=== PATIENT | male | born 1975 | race Two or more races ===

== ENCOUNTER 2020-09-04 10:11 | Inpatient (IN) | payer OTHER ==
[~2020-09-04] VITALS: Ht 182.9 cm; Wt 75.0 kg
[2020-09-04 10:54] LABS: BASOPHILS % (AUTO) 0.7 % (0.0-2.0); EOSINOPHILS % (AUTO) 1.1 % (1.0-6.0); HEMATOCRIT 32.3 % (41-53); HEMOGLOBIN 10.3 g/dL (13.5-17.5); LYMPHOCYTES # (AUTO) 0.5 K/uL (1.0-4.8); LYMPHOCYTES % (AUTO) 17.9 % (22.0-44.0); MEAN CORPUSCULAR HEMOGLOBIN 27.3 pg (26.0-34.0); MEAN CORPUSCULAR HGB CONC 31.9 G/dL (31.0-37.0); MEAN CORPUSCULAR VOLUME 86 fL (80-100); MONOCYTES # (AUTO) 0.3 K/uL (0.1-1.0); NEUTROPHILS # (AUTO) 1.7 K/uL (1.8-7.7); NEUTROPHILS % (AUTO) 69.3 % (40.0-70.0); PLATELET COUNT (AUTO) 152 K/uL (150-450); RED BLOOD CELL COUNT(AUTO) 3.77 MIL/uL (4.50-5.90); RED CELL DISTRIBUTION WIDTH 16.7 % (11.5-14.5)
[2020-09-04 11:01] LABS: COVID AG,FIA SOURCE NASAL SWAB
[2020-09-04] MEDS ORDERED: ALPR1TAB7 PO (11:03)
[2020-09-04] MEDS ORDERED: HYDR25TA84 PO (11:03)
[2020-09-04] MEDS ORDERED: CLON0.2T PO (11:03)
[2020-09-04] MEDS ORDERED: LABE100T8 PO (11:03)
[2020-09-04] MEDS ORDERED: AMLO-258 PO (11:03)
[2020-09-04] MEDS ORDERED: CYCL100L PO (11:03)
[2020-09-04 12:16] LABS: ANION GAP 13 mmol/L (8-16); CALCIUM, TOTAL 9.1 mg/dL (8.8-10.5); CARBON DIOXIDE 20 mmol/L (22-29); CHLORIDE 105 mmol/L (98-107); CREATININE 4.74 mg/dL (0.60-1.30); GLOMERULAR FILTR. RATE CALC 13 mL/min (>60); GLUCOSE,RANDOM 112 mg/dL (70-110); POTASSIUM 4.5 mmol/L (3.5-5.1); SODIUM SERUM 138 mmol/L (136-145); UREA NITROGEN, BLOOD 65 mg/dL (7-18)
[2020-09-04 12:21] LABS: ALANINE AMINOTRANSFERASE 22 U/L (12-78); ALBUMIN 3.8 g/dL (3.4-5.0); ALKALINE PHOSPHATASE 75 U/L (46-116); ASPARTATE AMINOTRANSFERASE 32 U/L (15-37); BILIRUBIN,TOTAL 0.6 mg/dL (0.1-1.0); TOTAL PROTEIN, SERUM 7.3 g/dL (6.4-8.2)
[2020-09-04] MEDS ORDERED: CYCL100 PO (13:09)
[2020-09-04] MEDS ORDERED: HYDR-4069 PO (13:09)
[2020-09-04] MEDS ORDERED: CYCL100C6 PO (13:10)
[2020-09-04] MEDS ORDERED: ACETAMINOPHEN 325 MG TABLET PO PRN ×2 (13:15→13:30)
[2020-09-04] MEDS ORDERED: 0.9% SODIUM CHLORIDE 10 ML SYRINGE IVP PRN ×2 (13:15→13:30)
[2020-09-04] MEDS ORDERED: IPRATROPIUM BROMIDE 0.5 MG/2.5 ML NEB SOLUTION NEB PRN (13:30)
[2020-09-04] MEDS ORDERED: DOCUSATE SODIUM 100 MG CAPSULE PO PRN (13:30)
[2020-09-04] MEDS: PANTOPRAZOLE SODIUM 40 MG DR TABLET PO SCH (13:30)
[2020-09-04] MEDS ORDERED: ONDANSETRON HCL 4 MG/2 ML VIAL IVP PRN (13:30)
[2020-09-04] MEDS ORDERED: ALBUTEROL SULFATE 2.5 MG/0.5 ML NEB SOLUTION NEB PRN (13:30)
[2020-09-04] MEDS ORDERED: BISACODYL 10 MG RECTAL RECTAL SUPPOSITORY PR PRN (13:30)
[2020-09-04] MEDS: VITAMIN B COMP/VIT C/FOLIC ACID CAPSULE PO SCH (14:13)
[2020-09-04 15:00] LABS: % IRON SATURATION 30.7 % (30-44)
[2020-09-04 15:48] VITALS: BP 143/97
[2020-09-04] MEDS: CloNIDine HCL 0.2 MG TABLET PO SCH ×2 (15:48→20:20)
[2020-09-04] MEDS: HydrALAZINE HCL 25 MG TABLET PO SCH ×2 (15:48→20:20)
[2020-09-04] MEDS ORDERED: ALPRAZolam 0.25 MG TABLET PO ONE (16:00)
[2020-09-04 19:55] VITALS: BP 145/88
[2020-09-04 21:38] LABS: APPEARANCE,URINE CLEAR (CLEAR); BILIRUBIN,URINE NEGATIVE (NEGATIVE); GLUCOSE, URINE (UA) 250 mg/dL (NEGATIVE); KETONES,URINE NEGATIVE (NEGATIVE); LEUKOCYTE ESTERASE ,URINE NEGATIVE (NEGATIVE); NITRATE,URINE NEGATIVE (NEGATIVE); OCCULT BLOOD,URINE NEGATIVE (NEGATIVE); PROTEIN,URINE POS 1+ (NEGATIVE); UROBILINOGEN,URINE 0.2 mg/dL (<=1.0)
[2020-09-04 21:42] LABS: AMPHET/METH SCREEN,URINE POSITIVE (NEGATIVE); BARBITURATE SCREEN, URINE NEGATIVE (NEGATIVE); BENZODIAZEPINES SCREEN,URINE NEGATIVE (NEGATIVE); CANNABINOID SCREEN,URINE POSITIVE (NEGATIVE); COCAINE SCREEN,URINE NEGATIVE (NEGATIVE); METHADONE SCREEN, URINE NEGATIVE (NEGATIVE); OPIATE SCREEN,URINE POSITIVE (NEGATIVE)
[2020-09-04 21:44] LABS: PHENCYCLIDINE SCREEN,URINE NEGATIVE (NEGATIVE)
[2020-09-04 21:53] LABS: CREATININE,URINE RANDOM 62.1 mg/dL (30.0-125.0)
[2020-09-04 21:57] LABS: BACTERIA,URINE None Seen /HPF (None Seen); SQUAMOUS EPITHELIAL CELL,UR Rare /LPF (None Seen); WBC,URINE None Seen /HPF (0-5)
[2020-09-04 21:58] LABS: RBC,URINE None Seen /HPF (0-2)
[2020-09-04 23:38] VITALS: BP 166/96
[2020-09-04] MEDS: HydrALAZINE HCL 25 MG TABLET PO PRN (23:52)
[2020-09-04] MEDS: HYDROCODONE/ACETAMINOPHEN 5-325 MG TABLET PO PRN (23:53)
[2020-09-05 04:55] VITALS: BP 166/94
[2020-09-05 05:39] LABS: BASOPHILS % (AUTO) 0.9 % (0.0-2.0); EOSINOPHILS % (AUTO) 3.3 % (1.0-6.0); HEMATOCRIT 33.7 % (41-53); HEMOGLOBIN 10.7 g/dL (13.5-17.5); LYMPHOCYTES # (AUTO) 0.6 K/uL (1.0-4.8); LYMPHOCYTES % (AUTO) 22.2 % (22.0-44.0); MEAN CORPUSCULAR HEMOGLOBIN 27.4 pg (26.0-34.0); MEAN CORPUSCULAR HGB CONC 31.9 G/dL (31.0-37.0); MEAN CORPUSCULAR VOLUME 86 fL (80-100); MONOCYTES # (AUTO) 0.5 K/uL (0.1-1.0); MONOCYTES % (AUTO) 16.8 % (2.0-9.0); NEUTROPHILS # (AUTO) 1.6 K/uL (1.8-7.7); NEUTROPHILS % (AUTO) 56.8 % (40.0-70.0); PLATELET COUNT (AUTO) 155 K/uL (150-450); RED BLOOD CELL COUNT(AUTO) 3.92 MIL/uL (4.50-5.90); RED CELL DISTRIBUTION WIDTH 16.8 % (11.5-14.5)
[2020-09-05 05:52] LABS: ALBUMIN 3.4 g/dL (3.4-5.0); BILIRUBIN,TOTAL 0.5 mg/dL (0.1-1.0); CALCIUM, TOTAL 8.8 mg/dL (8.8-10.5); CREATININE 4.32 mg/dL (0.60-1.30); MAGNESIUM 1.6 mg/dL (1.80-2.40); PHOSPHORUS 3.7 mg/dL (2.5-4.9); POTASSIUM 4.5 mmol/L (3.5-5.1); TOTAL PROTEIN, SERUM 6.7 g/dL (6.4-8.2)
[2020-09-05] MEDS: HydrALAZINE HCL 25 MG TABLET PO PRN (06:20)
[2020-09-05 07:47] VITALS: BP 144/88
[2020-09-05] MEDS: FERROUS SULFATE 325 MG EC TABLET PO SCH ×3 (07:58→18:16)
[2020-09-05] MEDS: VITAMIN B COMP/VIT C/FOLIC ACID CAPSULE PO SCH (08:00)
[2020-09-05] MEDS: DOCUSATE SODIUM 100 MG CAPSULE PO SCH ×2 (08:00→20:47)
[2020-09-05] MEDS: AmLODIPine BESYLATE 10 MG TABLET PO SCH (08:00)
[2020-09-05] MEDS: PANTOPRAZOLE SODIUM 40 MG DR TABLET PO SCH (08:00)
[2020-09-05] MEDS: CloNIDine HCL 0.2 MG TABLET PO SCH ×3 (08:00→20:47)
[2020-09-05] MEDS: HydrALAZINE HCL 25 MG TABLET PO SCH ×3 (08:01→20:47)
[2020-09-05] MEDS: CycloSPORINE,MODIFIED 100 MG CAPSULE PO SCH ×2 (12:13→20:48)
[2020-09-05] MEDS ORDERED: MAGNESIUM SULFATE 2 GM/WATER 50 ML IV ONE (14:15)
[2020-09-05] MEDS: ALPRAZolam 0.25 MG TABLET PO PRN (15:08)
[2020-09-05 15:44] VITALS: BP 140/86
[2020-09-05] MEDS: HYDROCODONE/ACETAMINOPHEN 5-325 MG TABLET PO PRN (20:47)
[2020-09-05 21:05] VITALS: BP 137/75
[2020-09-06] MEDS: ALPRAZolam 0.25 MG TABLET PO PRN ×3 (00:04→16:23)
[2020-09-06 05:05] VITALS: BP 151/83
[2020-09-06 06:15] LABS: EOSINOPHILS % (AUTO) 3.8 % (1.0-6.0); HEMATOCRIT 35.3 % (41-53); HEMOGLOBIN 11.3 g/dL (13.5-17.5); LYMPHOCYTES # (AUTO) 0.6 K/uL (1.0-4.8); LYMPHOCYTES % (AUTO) 25.1 % (22.0-44.0); MEAN CORPUSCULAR HEMOGLOBIN 27.3 pg (26.0-34.0); MEAN CORPUSCULAR HGB CONC 31.9 G/dL (31.0-37.0); MEAN CORPUSCULAR VOLUME 86 fL (80-100); MONOCYTES # (AUTO) 0.3 K/uL (0.1-1.0); MONOCYTES % (AUTO) 14.9 % (2.0-9.0); NEUTROPHILS # (AUTO) 1.3 K/uL (1.8-7.7); NEUTROPHILS % (AUTO) 55.2 % (40.0-70.0); PLATELET COUNT (AUTO) 166 K/uL (150-450); RED BLOOD CELL COUNT(AUTO) 4.12 MIL/uL (4.50-5.90); RED CELL DISTRIBUTION WIDTH 16.5 % (11.5-14.5)
[2020-09-06 06:27] LABS: ALBUMIN 3.2 g/dL (3.4-5.0); BILIRUBIN,TOTAL 0.4 mg/dL (0.1-1.0); CALCIUM, TOTAL 8.8 mg/dL (8.8-10.5); CALCIUM, TOTAL 9.2 mg/dL (8.8-10.5); CREATININE 4.06 mg/dL (0.60-1.30); CREATININE 4.24 mg/dL (0.60-1.30); MAGNESIUM 1.9 mg/dL (1.80-2.40); PHOSPHORUS 3.6 mg/dL (2.5-4.9); POTASSIUM 4.7 mmol/L (3.5-5.1); TOTAL PROTEIN, SERUM 6.6 g/dL (6.4-8.2)
[2020-09-06 07:37] VITALS: BP 141/80
[2020-09-06] MEDS: CloNIDine HCL 0.2 MG TABLET PO SCH ×3 (08:49→20:09)
[2020-09-06] MEDS: HydrALAZINE HCL 25 MG TABLET PO SCH ×3 (08:49→20:09)
[2020-09-06] MEDS: AmLODIPine BESYLATE 10 MG TABLET PO SCH (08:49)
[2020-09-06] MEDS: VITAMIN B COMP/VIT C/FOLIC ACID CAPSULE PO SCH (08:49)
[2020-09-06] MEDS: DOCUSATE SODIUM 100 MG CAPSULE PO SCH ×2 (08:49→19:54)
[2020-09-06] MEDS: FERROUS SULFATE 325 MG EC TABLET PO SCH ×3 (08:49→17:41)
[2020-09-06] MEDS: CycloSPORINE,MODIFIED 100 MG CAPSULE PO SCH ×2 (08:49→20:09)
[2020-09-06] MEDS: PANTOPRAZOLE SODIUM 40 MG DR TABLET PO SCH (08:49)
[2020-09-06] MEDS ORDERED: LOPERAMIDE HCL 2 MG CAPSULE PO ONE (16:15)
[2020-09-06] MEDS ORDERED: LOPERAMIDE HCL 2 MG CAPSULE PO PRN (16:15)
[2020-09-06 20:38] VITALS: BP 131/78
[2020-09-06] MEDS: HYDROCODONE/ACETAMINOPHEN 5-325 MG TABLET PO PRN (20:57)
[2020-09-07] MEDS: ALPRAZolam 0.25 MG TABLET PO PRN ×2 (02:18→08:48)
[2020-09-07 04:40] VITALS: BP 137/81
[2020-09-07 08:00] VITALS: BP 136/84
[2020-09-07] MEDS: VITAMIN B COMP/VIT C/FOLIC ACID CAPSULE PO SCH (08:45)
[2020-09-07] MEDS: HydrALAZINE HCL 25 MG TABLET PO SCH ×3 (08:45→20:59)
[2020-09-07] MEDS: PANTOPRAZOLE SODIUM 40 MG DR TABLET PO SCH (08:45)
[2020-09-07] MEDS: AmLODIPine BESYLATE 10 MG TABLET PO SCH (08:45)
[2020-09-07] MEDS: CycloSPORINE,MODIFIED 100 MG CAPSULE PO SCH ×2 (08:45→20:59)
[2020-09-07] MEDS: FERROUS SULFATE 325 MG EC TABLET PO SCH ×3 (08:45→18:12)
[2020-09-07] MEDS: CloNIDine HCL 0.2 MG TABLET PO SCH ×3 (08:45→20:59)
[2020-09-07] MEDS: DOCUSATE SODIUM 100 MG CAPSULE PO SCH ×3 (09:00→21:00)
[2020-09-07] MEDS: HYDROCODONE/ACETAMINOPHEN 5-325 MG TABLET PO PRN (12:07)
[2020-09-07 17:07] LABS: CYCLOSPORINE A 154 ng/mL (100-400)
[2020-09-07] MEDS ORDERED: AMLO10TA55 PO (17:21)
[2020-09-07] MEDS ORDERED: CLON0.2T PO (17:22)
[2020-09-07] MEDS ORDERED: CYCL100C6 PO (17:23)
[2020-09-07] MEDS ORDERED: HYDR10TA31 PO (17:24)
[2020-09-07] MEDS ORDERED: LABE100T8 PO ×2 (17:28→18:03)
[2020-09-07] MEDS ORDERED: FERR-89 PO (18:04)
[2020-09-07] MEDS ORDERED: B CO1CAP6 PO (18:05)
[2020-09-07 20:47] VITALS: BP 125/77
[2020-09-08] MEDS: ALPRAZolam 0.25 MG TABLET PO PRN (00:03)
[2020-09-08] MEDS: HYDROCODONE/ACETAMINOPHEN 5-325 MG TABLET PO PRN (03:46)
[2020-09-08 05:24] VITALS: BP 127/87
== END 2020-09-08 07:00 | DRG 896 ==
LOC: EMS 10:11 → 6S 13:01
PROVIDERS: ADMIT Internal Medicine; ATTEND Internal Medicine
DX: F19.139 Other psychoactive substance abuse with withdrawal, unspecified (principal); N18.6 End stage renal disease; N17.9 Acute kidney failure, unspecified; I12.0 Hypertensive chronic kidney disease with stage 5 chronic kidney disease or end stage renal disease; M32.14 Glomerular disease in systemic lupus erythematosus; F41.9 Anxiety disorder, unspecified; Z82.49 Family history of ischemic heart disease and other diseases of the circulatory system; Z20.822 Contact with and (suspected) exposure to COVID-19; F17.210 Nicotine dependence, cigarettes, uncomplicated
CPT/HCPCS: 71045; 76770; 80048; 80053; 80158; 81001; 82570; 82728; 83540; 83550; 83735; 83970; 84100; 84156; 85025; 87426; 99285; G0480; J3475; J7502; 36415-L1; 36415-TC

== ENCOUNTER 2020-09-27 12:12 | Inpatient (IN) | payer OTHER ==
[~2020-09-27] VITALS: Ht 182.9 cm; Wt 74.5 kg
[~2020-09-27 12:12] MED LIST: AMLO10TA55 PO; B CO1CAP6 PO; CYCL100C6 PO; FERR-89 PO; HYDR25TA84 PO; LABE100T8 PO; [UNRECOGNIZED DRUG - CODE] PO
[2020-09-27 13:11] LABS: BASOPHILS % (AUTO) 0.9 % (0.0-2.0); EOSINOPHILS % (AUTO) 2.3 % (1.0-6.0); HEMOGLOBIN 10.6 g/dL (13.5-17.5); LYMPHOCYTES # (AUTO) 0.7 K/uL (1.0-4.8); LYMPHOCYTES % (AUTO) 20.1 % (22.0-44.0); MEAN CORPUSCULAR HEMOGLOBIN 27.5 pg (26.0-34.0); MEAN CORPUSCULAR HGB CONC 32.1 G/dL (31.0-37.0); MEAN CORPUSCULAR VOLUME 86 fL (80-100); MONOCYTES # (AUTO) 0.5 K/uL (0.1-1.0); MONOCYTES % (AUTO) 14.2 % (2.0-9.0); NEUTROPHILS # (AUTO) 2.1 K/uL (1.8-7.7); NEUTROPHILS % (AUTO) 62.5 % (40.0-70.0); PLATELET COUNT (AUTO) 194 K/uL (150-450); RED BLOOD CELL COUNT(AUTO) 3.85 MIL/uL (4.50-5.90); RED CELL DISTRIBUTION WIDTH 17.4 % (11.5-14.5)
[2020-09-27 13:15] LABS: CREATININE 3.94 mg/dL (0.60-1.30); POTASSIUM 4.9 mmol/L (3.5-5.1)
[2020-09-27 13:20] LABS: ALBUMIN 3.3 g/dL (3.4-5.0); BILIRUBIN,TOTAL 0.3 mg/dL (0.1-1.0); MAGNESIUM 1.6 mg/dL (1.80-2.40); TOTAL PROTEIN, SERUM 6.5 g/dL (6.4-8.2)
[2020-09-27] MEDS ORDERED: 0.9% SODIUM CHLORIDE 10 ML SYRINGE IVP PRN (13:30)
[2020-09-27] MEDS ORDERED: ONDANSETRON HCL 4 MG/2 ML VIAL IVP PRN ×2 (13:30)
[2020-09-27] MEDS ORDERED: ACETAMINOPHEN 325 MG TABLET PO PRN ×2 (13:30)
[2020-09-27 13:46] LABS: COVID AG,FIA SOURCE NASOPHARYNGEAL
[2020-09-27 17:03] LABS: APPEARANCE,URINE CLEAR (CLEAR); BILIRUBIN,URINE NEGATIVE (NEGATIVE); GLUCOSE, URINE (UA) NEGATIVE (NEGATIVE); KETONES,URINE NEGATIVE (NEGATIVE); LEUKOCYTE ESTERASE ,URINE NEGATIVE (NEGATIVE); NITRATE,URINE NEGATIVE (NEGATIVE); OCCULT BLOOD,URINE NEGATIVE (NEGATIVE); PROTEIN,URINE TRACE (NEGATIVE); UROBILINOGEN,URINE 0.2 mg/dL (<=1.0)
[2020-09-27] MEDS: CloNIDine HCL 0.2 MG TABLET PO SCH (17:15)
[2020-09-27 17:28] LABS: CREATININE,URINE RANDOM 36.5 mg/dL (30.0-125.0); PROTEIN,URINE RANDOM 32 mg/dL (0-11.9); SODIUM,URINE RANDOM 101 mmol/l (20-110); UREA NITROGEN,URINE RANDOM 339 mg/dL (350-1000)
[2020-09-27 18:37] VITALS: BP 158/85
[2020-09-27 19:41] VITALS: BP 156/88
[2020-09-27] MEDS: DOCUSATE SODIUM 100 MG CAPSULE PO SCH (20:24)
[2020-09-27] MEDS: CycloSPORINE,MODIFIED 100 MG CAPSULE PO SCH (20:24)
[2020-09-27] MEDS: HEPARIN SODIUM,PORCINE 5,000 UNITS/ML VIAL SQ SCH (20:24)
[2020-09-27] MEDS ORDERED: PNEUMOCOCCAL VACCINE POLYVALENT 0.5 ML VIAL [PPSV23] IM. ONE (21:00)
[2020-09-27 23:55] VITALS: BP 152/99
[2020-09-28] MEDS: CloNIDine HCL 0.2 MG TABLET PO SCH ×4 (00:09→23:26)
[2020-09-28 05:09] VITALS: BP 167/77
[2020-09-28 07:14] VITALS: BP 144/86
[2020-09-28] MEDS: HEPARIN SODIUM,PORCINE 5,000 UNITS/ML VIAL SQ SCH ×2 (08:15→19:48)
[2020-09-28] MEDS: ASPIRIN 81 MG CHEWABLE TABLET PO SCH (08:15)
[2020-09-28] MEDS: AmLODIPine BESYLATE 10 MG TABLET PO SCH (08:16)
[2020-09-28] MEDS: CycloSPORINE,MODIFIED 100 MG CAPSULE PO SCH ×2 (08:16→19:48)
[2020-09-28] MEDS: FAMOTIDINE 20 MG TABLET PO SCH (08:16)
[2020-09-28] MEDS: DOCUSATE SODIUM 100 MG CAPSULE PO SCH ×2 (08:20→19:48)
[2020-09-28 12:00] VITALS: BP 120/72
[2020-09-28 15:45] VITALS: BP 148/58
[2020-09-28 20:17] VITALS: BP 134/81
[2020-09-29 00:17] VITALS: BP 141/76
[2020-09-29 04:29] VITALS: BP 164/83
[2020-09-29 07:45] VITALS: BP 158/87
[2020-09-29] MEDS: CloNIDine HCL 0.2 MG TABLET PO SCH ×2 (08:29→15:54)
[2020-09-29] MEDS: FAMOTIDINE 20 MG TABLET PO SCH (08:29)
[2020-09-29] MEDS: AmLODIPine BESYLATE 10 MG TABLET PO SCH (08:29)
[2020-09-29] MEDS: CycloSPORINE,MODIFIED 100 MG CAPSULE PO SCH ×2 (08:29→20:03)
[2020-09-29] MEDS: DOCUSATE SODIUM 100 MG CAPSULE PO SCH ×2 (08:29→20:03)
[2020-09-29] MEDS: ASPIRIN 81 MG CHEWABLE TABLET PO SCH (08:30)
[2020-09-29] MEDS: HEPARIN SODIUM,PORCINE 5,000 UNITS/ML VIAL SQ SCH ×2 (08:30→20:03)
[2020-09-29 09:14] LABS: PROTHROMBIN TIME 11.1 SEC (9.4-11.6)
[2020-09-29 11:25] VITALS: BP 145/77
[2020-09-29] MEDS ORDERED: FentaNYL CITRATE PF 100 MCG/2 ML VIAL ONE (12:45)
[2020-09-29] MEDS ORDERED: MIDAZOLAM HCL 2 MG/2 ML VIAL ONE (12:45)
[2020-09-29] MEDS ORDERED: GELATIN SPONGE,ABSORBABLE 12-7 MM TP ONE (12:50)
[2020-09-29] MEDS ORDERED: MIDAZOLAM HCL 2 MG/2 ML VIAL IVP ONE (13:30)
[2020-09-29] MEDS ORDERED: FentaNYL CITRATE PF 100 MCG/2 ML VIAL IVP ONE ×2 (13:30)
[2020-09-29] MEDS ORDERED: SODIUM CHLORIDE 0.9% 1,000 ML ONE (13:52)
[2020-09-29 15:48] VITALS: BP 151/82
[2020-09-29] MEDS: OxyCODONE HCL/ACETAMINOPHEN 5-325 MG TABLET PO PRN ×2 (15:54→20:03)
[2020-09-29 17:06] LABS: CYCLOSPORINE A 79 ng/mL (100-400)
[2020-09-29 20:23] VITALS: BP 107/71
[2020-09-29] MEDS ORDERED: OxyCODONE HCL/ACETAMINOPHEN 5-325 MG TABLET PO ONE (22:30)
[2020-09-29 23:10] LABS: HEMATOCRIT 31.9 % (41-53); HEMOGLOBIN 10.1 g/dL (13.5-17.5)
[2020-09-30] VITALS (7 sets, daily range): BP systolic 108–152; BP diastolic 68–79
[2020-09-30] MEDS: CloNIDine HCL 0.2 MG TABLET PO SCH ×4 (00:27→23:46)
[2020-09-30] MEDS ORDERED: HYDROmorphone 2 MG/ML VIAL IVP ONE (00:45)
[2020-09-30] MEDS: OxyCODONE HCL/ACETAMINOPHEN 5-325 MG TABLET PO PRN ×4 (03:33→18:54)
[2020-09-30] MEDS ORDERED: HYDROmorphone HCL 2 MG TABLET PO ONE (05:00)
[2020-09-30 07:16] LABS: BASOPHILS % (AUTO) 1.3 % (0.0-2.0); EOSINOPHILS % (AUTO) 4.9 % (1.0-6.0); HEMATOCRIT 31.2 % (41-53); LYMPHOCYTES # (AUTO) 0.7 K/uL (1.0-4.8); LYMPHOCYTES % (AUTO) 42.2 % (22.0-44.0); MEAN CORPUSCULAR HEMOGLOBIN 27.8 pg (26.0-34.0); MEAN CORPUSCULAR HGB CONC 32.1 G/dL (31.0-37.0); MEAN CORPUSCULAR VOLUME 87 fL (80-100); MONOCYTES # (AUTO) 0.4 K/uL (0.1-1.0); MONOCYTES % (AUTO) 23.9 % (2.0-9.0); NEUTROPHILS # (AUTO) 0.5 K/uL (1.8-7.7); NEUTROPHILS % (AUTO) 27.7 % (40.0-70.0); PLATELET COUNT (AUTO) 164 K/uL (150-450); RED BLOOD CELL COUNT(AUTO) 3.59 MIL/uL (4.50-5.90)
[2020-09-30 07:22] LABS: CALCIUM, TOTAL 8.6 mg/dL (8.8-10.5); CREATININE 4.25 mg/dL (0.60-1.30); POTASSIUM 5.1 mmol/L (3.5-5.1)
[2020-09-30] MEDS: DOCUSATE SODIUM 100 MG CAPSULE PO SCH ×2 (09:00→20:34)
[2020-09-30] MEDS: AmLODIPine BESYLATE 10 MG TABLET PO SCH (09:18)
[2020-09-30] MEDS: HEPARIN SODIUM,PORCINE 5,000 UNITS/ML VIAL SQ SCH ×2 (09:18→20:33)
[2020-09-30] MEDS: ASPIRIN 81 MG CHEWABLE TABLET PO SCH (09:18)
[2020-09-30] MEDS: CycloSPORINE,MODIFIED 100 MG CAPSULE PO SCH ×2 (09:18→20:33)
[2020-09-30] MEDS: FAMOTIDINE 20 MG TABLET PO SCH (09:19)
[2020-09-30] MEDS: HYDROmorphone HCL 2 MG TABLET PO PRN (20:33)
[2020-10-01] MEDS: HYDROmorphone HCL 2 MG TABLET PO PRN ×4 (00:38→20:35)
[2020-10-01 04:21] VITALS: BP 149/76
[2020-10-01 07:10] LABS: BAND NEUTROPHILS % (MANUAL) 0 % (0-5)
[2020-10-01 07:33] LABS: CREATININE 4.61 mg/dL (0.60-1.30); POTASSIUM 5.4 mmol/L (3.5-5.1)
[2020-10-01 07:35] VITALS: BP 158/80
[2020-10-01 07:43] LABS: HEMATOCRIT 29.7 % (41-53); HEMOGLOBIN 9.7 g/dL (13.5-17.5); MEAN CORPUSCULAR HEMOGLOBIN 27.9 pg (26.0-34.0); MEAN CORPUSCULAR HGB CONC 32.6 G/dL (31.0-37.0); MEAN CORPUSCULAR VOLUME 86 fL (80-100); PLATELET COUNT (AUTO) 144 K/uL (150-450); RED BLOOD CELL COUNT(AUTO) 3.47 MIL/uL (4.50-5.90); RED CELL DISTRIBUTION WIDTH 17.2 % (11.5-14.5)
[2020-10-01 08:21] LABS: LYMPHOCYTES % (MANUAL) 53 % (22-44); MONOCYTES % (MANUAL) 6 % (2-9); SEGMENTED NEUTROPHILS % 41 % (40-70)
[2020-10-01] MEDS: CloNIDine HCL 0.2 MG TABLET PO SCH ×3 (08:30→23:47)
[2020-10-01] MEDS: DOCUSATE SODIUM 100 MG CAPSULE PO SCH ×2 (08:30→20:35)
[2020-10-01] MEDS: CycloSPORINE,MODIFIED 100 MG CAPSULE PO SCH ×2 (08:30→20:35)
[2020-10-01] MEDS: FAMOTIDINE 20 MG TABLET PO SCH (08:30)
[2020-10-01] MEDS: AmLODIPine BESYLATE 10 MG TABLET PO SCH (08:30)
[2020-10-01] MEDS: ASPIRIN 81 MG CHEWABLE TABLET PO SCH (08:30)
[2020-10-01] MEDS: HEPARIN SODIUM,PORCINE 5,000 UNITS/ML VIAL SQ SCH ×2 (08:31→20:35)
[2020-10-01 11:21] VITALS: BP 151/83
[2020-10-01] MEDS: LABETALOL HCL 200 MG TABLET PO SCH ×2 (12:01→20:35)
[2020-10-01] MEDS ORDERED: SODIUM ZIRCONIUM CYCLOSILICATE 5 GM POWDER PACKET PO ONE (13:00)
[2020-10-01 15:32] VITALS: BP 152/86
[2020-10-01 19:34] VITALS: BP 158/99
[2020-10-01 23:35] VITALS: BP 119/59
[2020-10-02 04:07] VITALS: BP 155/62
[2020-10-02] MEDS: HYDROmorphone HCL 2 MG TABLET PO PRN ×4 (06:03→21:13)
[2020-10-02 07:18] LABS: BAND NEUTROPHILS % (MANUAL) 0 % (0-5)
[2020-10-02 07:22] LABS: HEMATOCRIT 31.9 % (41-53); HEMOGLOBIN 10.2 g/dL (13.5-17.5); MEAN CORPUSCULAR HEMOGLOBIN 27.9 pg (26.0-34.0); MEAN CORPUSCULAR VOLUME 87 fL (80-100); PLATELET COUNT (AUTO) 130 K/uL (150-450); RED BLOOD CELL COUNT(AUTO) 3.66 MIL/uL (4.50-5.90); RED CELL DISTRIBUTION WIDTH 17.2 % (11.5-14.5)
[2020-10-02] MEDS: ASPIRIN 81 MG CHEWABLE TABLET PO SCH (07:43)
[2020-10-02] MEDS: HEPARIN SODIUM,PORCINE 5,000 UNITS/ML VIAL SQ SCH ×2 (07:43→20:38)
[2020-10-02] MEDS: LABETALOL HCL 200 MG TABLET PO SCH ×3 (07:43→20:38)
[2020-10-02] MEDS: FAMOTIDINE 20 MG TABLET PO SCH (07:43)
[2020-10-02] MEDS: DOCUSATE SODIUM 100 MG CAPSULE PO SCH ×2 (07:43→20:38)
[2020-10-02] MEDS: CycloSPORINE,MODIFIED 100 MG CAPSULE PO SCH ×2 (07:43→20:38)
[2020-10-02] MEDS: CloNIDine HCL 0.2 MG TABLET PO SCH ×3 (07:43→16:00)
[2020-10-02] MEDS: AmLODIPine BESYLATE 10 MG TABLET PO SCH (07:43)
[2020-10-02 08:55] LABS: LYMPHOCYTES % (MANUAL) 52 % (22-44); MONOCYTES % (MANUAL) 5 % (2-9); SEGMENTED NEUTROPHILS % 43 % (40-70)
[2020-10-02 09:06] VITALS: BP 118/69
[2020-10-02] MEDS ORDERED: SODIUM ZIRCONIUM CYCLOSILICATE 5 GM POWDER PACKET PO ONE (10:15)
[2020-10-02 11:43] LABS: CALCIUM, TOTAL 8.6 mg/dL (8.8-10.5); CREATININE 4.3 mg/dL (0.60-1.30); POTASSIUM 5.3 mmol/L (3.5-5.1)
[2020-10-02 13:16] VITALS: BP 113/68
[2020-10-02 16:37] VITALS: BP 123/75
[2020-10-02 20:07] VITALS: BP 144/81
[2020-10-02] MEDS: MELATONIN 3 MG TABLET PO PRN (21:26)
[2020-10-02 23:49] VITALS: BP 125/80
[2020-10-03] MEDS: HYDROmorphone HCL 2 MG TABLET PO PRN ×4 (03:06→20:30)
[2020-10-03 04:54] VITALS: BP 122/75
[2020-10-03 05:07] LABS: HEPATITIS C AB (EIA) <0.1 s/co ratio (0.0-0.9); HIV 1-2 SCREEN 4TH GEN W/RFLX Non Reactive (Non Reactive)
[2020-10-03 08:14] VITALS: BP 141/87
[2020-10-03] MEDS: DOCUSATE SODIUM 100 MG CAPSULE PO SCH ×2 (08:23→20:21)
[2020-10-03] MEDS: CycloSPORINE,MODIFIED 100 MG CAPSULE PO SCH ×2 (08:24→19:09)
[2020-10-03] MEDS: ASPIRIN 81 MG CHEWABLE TABLET PO SCH (08:24)
[2020-10-03] MEDS: TERAZOSIN HCL 2 MG CAPSULE PO SCH (08:24)
[2020-10-03] MEDS: FAMOTIDINE 20 MG TABLET PO SCH (08:24)
[2020-10-03] MEDS: CloNIDine HCL 0.2 MG TABLET PO SCH ×3 (08:24→15:57)
[2020-10-03] MEDS: HEPARIN SODIUM,PORCINE 5,000 UNITS/ML VIAL SQ SCH ×2 (08:25→20:21)
[2020-10-03] MEDS: LABETALOL HCL 200 MG TABLET PO SCH ×2 (08:26→20:21)
[2020-10-03] MEDS: AmLODIPine BESYLATE 10 MG TABLET PO SCH (08:26)
[2020-10-03] MEDS: MAGNESIUM OXIDE 400 MG TABLET PO SCH (08:32)
[2020-10-03] MEDS: PredniSONE 5 MG TABLET PO SCH (10:44)
[2020-10-03] MEDS: CYANOCOBALAMIN 1,000 MCG/ML VIAL IM SCH (10:45)
[2020-10-03 12:38] VITALS: BP 120/74
[2020-10-03] MEDS ORDERED: MAGNESIUM SULFATE 2 GM/WATER 50 ML IV ONE (13:15)
[2020-10-03] MEDS ORDERED: SODIUM CHLORIDE 0.9% 1,000 ML ONE (15:35)
[2020-10-03 16:30] VITALS: BP 118/73
[2020-10-03 17:46] LABS: BASOPHILS % (AUTO) 0.4 % (0.0-2.0); HEMATOCRIT 31.9 % (41-53); HEMOGLOBIN 10.2 g/dL (13.5-17.5); LYMPHOCYTES # (AUTO) 0.3 K/uL (1.0-4.8); LYMPHOCYTES % (AUTO) 18.5 % (22.0-44.0); MEAN CORPUSCULAR HEMOGLOBIN 27.8 pg (26.0-34.0); MEAN CORPUSCULAR HGB CONC 31.9 G/dL (31.0-37.0); MEAN CORPUSCULAR VOLUME 87 fL (80-100); MONOCYTES # (AUTO) 0.2 K/uL (0.1-1.0); MONOCYTES % (AUTO) 13.9 % (2.0-9.0); NEUTROPHILS # (AUTO) 0.9 K/uL (1.8-7.7); NEUTROPHILS % (AUTO) 66.2 % (40.0-70.0); PLATELET COUNT (AUTO) 137 K/uL (150-450); RED BLOOD CELL COUNT(AUTO) 3.67 MIL/uL (4.50-5.90); RED CELL DISTRIBUTION WIDTH 17.1 % (11.5-14.5)
[2020-10-03 17:59] LABS: BILIRUBIN,TOTAL 0.4 mg/dL (0.1-1.0); CREATININE 4.21 mg/dL (0.60-1.30); TOTAL PROTEIN, SERUM 6.6 g/dL (6.4-8.2)
[2020-10-03 18:04] LABS: POTASSIUM 6.6 mmol/L (3.5-5.1)
[2020-10-03] MEDS ORDERED: CALCIUM GLUCONATE 100 MG/ML 10 ML IVP ONE (18:15)
[2020-10-03] MEDS ORDERED: SODIUM ZIRCONIUM CYCLOSILICATE 5 GM POWDER PACKET PO ONE (18:15)
[2020-10-03 19:10] VITALS: BP 129/83
[2020-10-03] MEDS: MELATONIN 3 MG TABLET PO PRN (20:30)
[2020-10-03 22:35] LABS: CALCIUM, TOTAL 8.7 mg/dL (8.8-10.5); CREATININE 4.33 mg/dL (0.60-1.30); POTASSIUM 5.8 mmol/L (3.5-5.1)
[2020-10-04 00:13] VITALS: BP 127/75
[2020-10-04] MEDS: CloNIDine HCL 0.2 MG TABLET PO SCH ×3 (00:17→16:00)
[2020-10-04 05:00] VITALS: BP 133/87
[2020-10-04 06:59] LABS: BASOPHILS % (AUTO) 0.6 % (0.0-2.0); EOSINOPHILS % (AUTO) 3.2 % (1.0-6.0); HEMATOCRIT 31.5 % (41-53); HEMOGLOBIN 10.1 g/dL (13.5-17.5); LYMPHOCYTES # (AUTO) 0.5 K/uL (1.0-4.8); LYMPHOCYTES % (AUTO) 33.1 % (22.0-44.0); MEAN CORPUSCULAR HEMOGLOBIN 27.7 pg (26.0-34.0); MEAN CORPUSCULAR HGB CONC 32.2 G/dL (31.0-37.0); MEAN CORPUSCULAR VOLUME 86 fL (80-100); MONOCYTES # (AUTO) 0.4 K/uL (0.1-1.0); MONOCYTES % (AUTO) 22.6 % (2.0-9.0); NEUTROPHILS # (AUTO) 0.6 K/uL (1.8-7.7); NEUTROPHILS % (AUTO) 40.5 % (40.0-70.0); PLATELET COUNT (AUTO) 136 K/uL (150-450); RED BLOOD CELL COUNT(AUTO) 3.66 MIL/uL (4.50-5.90); RED CELL DISTRIBUTION WIDTH 17.1 % (11.5-14.5)
[2020-10-04 07:28] LABS: BILIRUBIN,TOTAL 0.4 mg/dL (0.1-1.0); CALCIUM, TOTAL 8.6 mg/dL (8.8-10.5); CREATININE 4.14 mg/dL (0.60-1.30); POTASSIUM 5.4 mmol/L (3.5-5.1); TOTAL PROTEIN, SERUM 6.6 g/dL (6.4-8.2)
[2020-10-04 07:47] VITALS: BP 122/74
[2020-10-04] MEDS: ASPIRIN 81 MG CHEWABLE TABLET PO SCH (09:15)
[2020-10-04] MEDS: MAGNESIUM OXIDE 400 MG TABLET PO SCH (09:16)
[2020-10-04] MEDS: PredniSONE 5 MG TABLET PO SCH (09:16)
[2020-10-04] MEDS: CycloSPORINE,MODIFIED 100 MG CAPSULE PO SCH (09:16)
[2020-10-04] MEDS: HEPARIN SODIUM,PORCINE 5,000 UNITS/ML VIAL SQ SCH (09:17)
[2020-10-04] MEDS: LABETALOL HCL 200 MG TABLET PO SCH (09:17)
[2020-10-04] MEDS: FAMOTIDINE 20 MG TABLET PO SCH (09:18)
[2020-10-04] MEDS: CYANOCOBALAMIN 1,000 MCG/ML VIAL IM SCH (09:18)
[2020-10-04] MEDS: DOCUSATE SODIUM 100 MG CAPSULE PO SCH (09:18)
[2020-10-04] MEDS: TERAZOSIN HCL 2 MG CAPSULE PO SCH (09:19)
[2020-10-04] MEDS: HYDROmorphone HCL 2 MG TABLET PO PRN (09:29)
[2020-10-04] MEDS ORDERED: SODIUM ZIRCONIUM CYCLOSILICATE 5 GM POWDER PACKET PO SCH (09:30)
[2020-10-04 11:13] VITALS: BP 131/78
[2020-10-04] MEDS: AmLODIPine BESYLATE 10 MG TABLET PO SCH (11:58)
[2020-10-04] MEDS: MethylPREDNISolone SOD SUCC 500 MG in SODIUM CHLORIDE 0.9% 50 ML IV SCH (12:43)
[2020-10-04] MEDS ORDERED: PRED-409 PO (15:46)
[2020-10-04] MEDS ORDERED: TERA2CAP10 PO (15:47)
[2020-10-04] MEDS ORDERED: SODI5POW2 PO (15:48)
[2020-10-04 15:52] VITALS: BP 119/78
== END 2020-10-04 18:00 | DRG 698 ==
LOC: EMS 12:12 → 5S 13:33
PROVIDERS: ADMIT Internal Medicine; ATTEND Internal Medicine
PROC: 0TB03ZX Excision of Right Kidney, Percutaneous Approach, Diagnostic (ICD-10-PCS; principal; 2020-09-29)
DX: T86.11 Kidney transplant rejection (principal); N18.6 End stage renal disease; I12.0 Hypertensive chronic kidney disease with stage 5 chronic kidney disease or end stage renal disease; D72.819 Decreased white blood cell count, unspecified; M32.14 Glomerular disease in systemic lupus erythematosus; Z20.822 Contact with and (suspected) exposure to COVID-19; E87.5 Hyperkalemia; Z82.49 Family history of ischemic heart disease and other diseases of the circulatory system; Z87.891 Personal history of nicotine dependence; Z86.718 Personal history of other venous thrombosis and embolism
CPT/HCPCS: 50200; 71045; 76776; 80048; 80053; 80158; 81003; 82570; 82607; 83735; 84156; 84300; 84540; 85007; 85014; 85018; 85025; 85027; 85610; 85730; 87040; 87086; 87389; 87426; 87496; 87798; 88300; 93005; 93971; 99285; A9575; J0610; J1170; J1644; J2250; J2405; J2930; J3010; J3420; J3475; J7030; J7050; J7502; 36415-L1; 36415-TC

== ENCOUNTER 2020-11-06 17:48 | Inpatient (IN) | payer OTHER ==
[~2020-11-06] VITALS: Ht 182.9 cm; Wt 86.2 kg
[~2020-11-06 17:48] MED LIST changes: +CLON0.2T PO; +LABE100T51 PO; -LABE100T8 PO; +PRED-409 PO; +SODI5POW2 PO; +TERA2CAP10 PO; -[UNRECOGNIZED DRUG - CODE] PO
[2020-11-06] MEDS ORDERED: CYCL100L PO (18:52)
[2020-11-06 19:19] LABS: BASOPHILS % (AUTO) 1.1 % (0.0-2.0); EOSINOPHILS % (AUTO) 5.1 % (1.0-6.0); HEMATOCRIT 29.8 % (41-53); HEMOGLOBIN 9.4 g/dL (13.5-17.5); LYMPHOCYTES # (AUTO) 0.5 K/uL (1.0-4.8); LYMPHOCYTES % (AUTO) 16.4 % (22.0-44.0); MEAN CORPUSCULAR HEMOGLOBIN 27.8 pg (26.0-34.0); MEAN CORPUSCULAR HGB CONC 31.4 G/dL (31.0-37.0); MEAN CORPUSCULAR VOLUME 89 fL (80-100); MONOCYTES # (AUTO) 0.6 K/uL (0.1-1.0); MONOCYTES % (AUTO) 19.7 % (2.0-9.0); NEUTROPHILS # (AUTO) 1.6 K/uL (1.8-7.7); NEUTROPHILS % (AUTO) 57.7 % (40.0-70.0); PLATELET COUNT (AUTO) 185 K/uL (150-450); RED BLOOD CELL COUNT(AUTO) 3.37 MIL/uL (4.50-5.90); RED CELL DISTRIBUTION WIDTH 17.2 % (11.5-14.5)
[2020-11-06 19:37] LABS: PROTHROMBIN TIME 10.6 SEC (9.4-11.6)
[2020-11-06 20:45] LABS: CALCIUM, TOTAL 8.6 mg/dL (8.8-10.5); CREATININE 4.14 mg/dL (0.60-1.30); POTASSIUM 4.7 mmol/L (3.5-5.1)
[2020-11-06 20:51] LABS: ALBUMIN 3.3 g/dL (3.4-5.0); BILIRUBIN,TOTAL 0.4 mg/dL (0.1-1.0); TOTAL PROTEIN, SERUM 6.8 g/dL (6.4-8.2)
[2020-11-06] MEDS ORDERED: ONDANSETRON HCL 4 MG/2 ML VIAL IVP PRN (22:00)
[2020-11-06 23:56] LABS: COVID AG,FIA SOURCE NASOPHARYNGEAL
[2020-11-07 00:50] VITALS: BP 151/78
[2020-11-07] MEDS: ACETAMINOPHEN 325 MG TABLET PO PRN (01:04)
[2020-11-07 05:00] VITALS: BP 143/86
[2020-11-07 07:18] VITALS: BP 147/95
[2020-11-07] MEDS: FAMOTIDINE 20 MG TABLET PO SCH (08:50)
[2020-11-07] MEDS: DOCUSATE SODIUM 100 MG CAPSULE PO SCH ×2 (08:50→19:51)
[2020-11-07] MEDS: ASPIRIN 81 MG CHEWABLE TABLET PO SCH (08:50)
[2020-11-07] MEDS: AmLODIPine BESYLATE 10 MG TABLET PO SCH (08:51)
[2020-11-07] MEDS: PredniSONE 5 MG TABLET PO SCH (08:52)
[2020-11-07] MEDS: HEPARIN SODIUM,PORCINE 5,000 UNITS/ML VIAL SQ SCH ×2 (08:55→19:51)
[2020-11-07] MEDS: OxyCODONE HCL/ACETAMINOPHEN 5-325 MG TABLET PO PRN ×2 (15:46→19:51)
[2020-11-07 19:25] VITALS: BP 139/91
[2020-11-08] MEDS: OxyCODONE HCL/ACETAMINOPHEN 5-325 MG TABLET PO PRN ×2 (00:17→08:11)
[2020-11-08 04:45] VITALS: BP 140/91
[2020-11-08 05:47] LABS: CALCIUM, TOTAL 8.6 mg/dL (8.8-10.5); CREATININE 3.77 mg/dL (0.60-1.30); POTASSIUM 5.1 mmol/L (3.5-5.1)
[2020-11-08] MEDS: PredniSONE 5 MG TABLET PO SCH (08:11)
[2020-11-08] MEDS: DOCUSATE SODIUM 100 MG CAPSULE PO SCH (08:11)
[2020-11-08] MEDS: FAMOTIDINE 20 MG TABLET PO SCH (08:11)
[2020-11-08] MEDS: ASPIRIN 81 MG CHEWABLE TABLET PO SCH (08:11)
[2020-11-08] MEDS: AmLODIPine BESYLATE 10 MG TABLET PO SCH (08:12)
[2020-11-08] MEDS: HEPARIN SODIUM,PORCINE 5,000 UNITS/ML VIAL SQ SCH (08:12)
[2020-11-08] MEDS ORDERED: CycloSPORINE,MODIFIED 100 MG CAPSULE PO SCH (11:45)
[2020-11-08] MEDS ORDERED: ASPI81TA87 PO (12:03)
[2020-11-08] MEDS ORDERED: DOCU100C34 PO (12:04)
[2020-11-08] MEDS ORDERED: FAMO20 PO (12:05)
[2020-11-08] MEDS ORDERED: FURO-152 PO (12:06)
[2020-11-08] MEDS ORDERED: ACET-3207 PO (12:08)
[2020-11-08] MEDS: ACETAMINOPHEN 325 MG TABLET PO PRN (12:46)
[2020-11-08] MEDS ORDERED: FUROSEMIDE 40 MG/4 ML VIAL IVP SCH (21:00)
== END 2020-11-08 13:15 | DRG 682 ==
LOC: EMS 17:48 → 6S 21:51
PROVIDERS: ADMIT Internal Medicine; ATTEND Internal Medicine
DX: I12.0 Hypertensive chronic kidney disease with stage 5 chronic kidney disease or end stage renal disease (principal); N18.6 End stage renal disease; Z94.0 Kidney transplant status; M32.14 Glomerular disease in systemic lupus erythematosus; Z20.822 Contact with and (suspected) exposure to COVID-19; Z87.891 Personal history of nicotine dependence; D63.1 Anemia in chronic kidney disease; Z99.2 Dependence on renal dialysis
CPT/HCPCS: 71045; 80048; 80053; 83880; 85025; 85610; 85730; 93005; 99285; J1644; J7502; 36415-L1; 36415-TC